=== PATIENT | male | born 1965 | race Caucasian/White ===

== ENCOUNTER 2020-05-03 21:27 | Emergency (ER) | payer BC ==
[2020-05-03] MEDS ORDERED: Lidocaine 2% Viscous Solution 15 ML Cup ONE (23:05)
[2020-05-03] MEDS ORDERED: Lidocaine 2% Viscous Solution 15 ML Cup PO ONE (23:26)
--- NOTE | 2020-05-03 23:41 | EDM.PDOC ---
ED [facility] GENERAL MEDICAL PROBLEM - General Chief Complaint: Genitourinary Problem Stated Complaint: URINARY PROBLEM Time Seen by Provider: 05/03/20 21:32 - History of Present Illness INITIAL COMMENTS - FREE TEXT/NARRATIVE: HISTORY AND PHYSICAL: History of present illness: 54-year-old male presents emergency department with acute urinary retention symptoms. Reports that he has severe pelvic discomfort and fullness and has had difficulty defecating, no leg or back issues, and recently was diagnosed with probable prostatitis and given Bactrim. Today he has not been able to urinate since noon. He is also had some constipation. No nausea or vomiting. Denies any fevers. Has mild dysuria. Review of systems: A 10-point review of systems, other than pertinent positives and negatives as stated per HPI, is otherwise negative. Past medical history: As per history of present illness and as reviewed below otherwise noncontributory. Surgical history: As per history of present illness and as reviewed below otherwise non contributory. Social history: No reported history of drug or alcohol abuse. Family history: As per history of present illness and as reviewed below otherwise noncontributory. Physical exam: VITAL SIGNS: Reviewed. GENERAL: Appears very uncomfortable and is diaphoretic and pale. Moderate distress. Holding abdomen. HEAD: No signs of head trauma. EYES: Pupils are equal. Extraocular motions intact. EARS: Hearing grossly intact. MOUTH: Oropharynx is normal. NECK: No adenopathy, no JVD. CHEST: Chest with clear breath sounds bilaterally. No wheezes, rales, or rhonchi. CARDIAC: Regular rate and rhythm. Normal S1 and S2, without murmurs, gallops, or rubs. VASCULAR: Peripheral pulses normal and equal in all extremities. ABDOMEN: Soft, tender and palpable bladder almost to the umbilicus, no rebound or guarding, no pulsatile mass noted MUSCULOSKELETAL: Good range of motion of all major joints. Extremities without clubbing, cyanosis or edema. NEUROLOGIC EXAM: Alert and oriented x 3. No focal sensory or motor deficits. Speech normal. Follows commands. PSYCHIATRIC: Mood normal. SKIN: No rash or lesions. Initial Differential Diagnosis & Plan: Urinary retention, aortic dissection, prostatitis, prostatic hypertrophy, urinary obstruction from stone or other causes. Definitive disposition and diagnosis as appropriate pending reevaluation and review of above. bladder Pain Score (Numeric/FACES): 10 - Related Data Allergies Allergy/AdvReac Type Severity Reaction Status Date / Time No Known Allergies Allergy Verified 05/03/20 23:32 Home Meds: Home Meds lisinopriL [Lisinopril] 5 mg PO DAILY 05/03/20 [History] Ciprofloxacin [Ciprofloxacin HCl] 500 mg PO BID 10 Days #20 tab 05/04/20 [Rx] Past Medical History - Past Health History Medical/Surgical History: Denies Medical/Surgical History Social & Family History - Tobacco Use Tobacco Use Status *Q: Never Tobacco User Second Hand Smoke Exposure: No - Recreational Drug Use Recreational Drug Use: No ED ROS GENERAL - Review of Systems Review Of Systems: See Below (noted) ED EXAM, RENAL/ - Physical Exam Exam: See Below (noted) Course - Vital Signs Last Recorded V/S: Last Vital Signs Temp 95.5 F L 05/03/20 23:01 Pulse 97 05/03/20 23:01 Resp 19 05/03/20 23:01 BP 178/87 H 05/03/20 23:01 Pulse Ox 97 05/03/20 23:01 - Orders/Labs/Meds Orders: Active Orders 24 hr Category Date Time Status Insert Maldonado Catheter [Insert Urinary Catheter] [OM.PC] Care 05/03/20 22:15 Ordered Q24H Urinary Catheter Assessment [RC] ASDIRECTED Care 05/03/20 22:04 Active BASIC METABOLIC PANEL,BMP [CHEM] Stat Lab 05/03/20 22:04 Ordered CBC WITH AUTO DIFF [HEME] Stat Lab 05/03/20 22:04 Ordered CULTURE BLOOD [BC] Stat Lab 05/03/20 23:43 Ordered CULTURE BLOOD [BC] Stat Lab 05/03/20 23:43 Ordered CULTURE URINE [RM] Stat Lab 05/03/20 22:40 Received LACTATE WITH REFLEX [BG] Stat Lab 05/03/20 23:43 Ordered Blood Culture x2 Reflex Set [OM.PC] Stat Oth 05/03/20 23:43 Ordered Labs: Laboratory Tests 05/03/20 Range/Units 22:40 Urine Color YELLOW Urine Appearance CLOUDY Urine pH 7.5 (5.0-8.0) Ur Specific [place] 1.020 (1.001-1.035) Urine Protein 30 H (NEGATIVE) mg/dL Urine Glucose (UA) NEGATIVE (NEGATIVE) mg/dL Urine Ketones NEGATIVE (NEGATIVE) mg/dL Urine Occult Blood SMALL H (NEGATIVE) Urine Nitrite POSITIVE H (NEGATIVE) Urine Bilirubin NEGATIVE (NEGATIVE) Urine Urobilinogen 0.2 (<2.0) EU/dL Ur Leukocyte Esterase MODERATE H (NEGATIVE) Urine RBC 2-4 (0-2/HPF) Urine WBC TO NUMEROUS TO COUNT H (0-5/HPF) Ur Epithelial Cells FEW (NONE-FEW) Urine Bacteria 4+ H (NEGATIVE) Urine Mucus LIGHT (NONE-MOD) Meds: Medications Discontinued Medications Generic Name Dose Route Start Last Admin Trade Name Jermaineq PRN Reason Stop Dose Admin Ceftriaxone Sodium/Dextrose 2 50 mls @ 100 mls/hr 05/03/20 23:42 gm/ Premix IV 05/04/20 00:11 ONETIME ONE Ketorolac Tromethamine 15 mg 05/03/20 23:42 Toradol IVPUSH 05/03/20 23:43 ONETIME ONE Lidocaine HCl Confirm 05/03/20 23:05 05/03/20 23:31 Xylocaine 2% Viscous Administered 05/03/20 23:06 Not Given Dose 15 ml .ROUTE .STK-MED ONE Lidocaine HCl 15 ml 05/03/20 23:26 05/03/20 23:31 Xylocaine 2% Viscous PO 05/03/20 23:27 15 ml ASDIRECTED ONE Administration - Re-Assessments/Exams Free Text/Narrative Re-Assessment/Exam: 05/04/20 00:52 Multiple attempts to relieve the urinary obstruction secondary to his UTI/cystitis. I was unable to pass it. Dr. Butler, urology, came to the bedside and evaluated the patient. While he was here the patient was able to urinate. We did not need to pass a catheter. Now he is urinated multiple times and he is feeling better. Dr. Butler will follow up with him in the office. He is asked me to prescribe ciprofloxacin and have the patient stop his Bactrim. My diagnostic impression: 1. Urinary tract infection/cystitis 2. Urinary retention; relieved Departure - Departure Time of Disposition: 00:53 Disposition: Home, Self-Care 01 Clinical Impression: Cystitis, Urinary retention - Discharge Information *PRESCRIPTION DRUG MONITORING PROGRAM REVIEWED*: Not Applicable *COPY OF PRESCRIPTION DRUG MONITORING REPORT IN PATIENT BECKA: Not Applicable Prescriptions: Ciprofloxacin [Ciprofloxacin HCl] 500 mg PO BID 10 Days #20 tab Instructions: Urinary Tract Infection, Adult, [id number] Referrals: PCP,None [Primary Care Provider] - Forms: ED Department Discharge Additional Instructions: The following information is given to patients seen in the emergency department who are being discharged to home. This information is to outline your options for follow-up care. We provide all patients seen in our emergency department with a follow-up referral. The need for follow-up, as well as the timing and circumstances, are variable depending upon the specifics of your emergency department visit. If you don't have a primary care physician on staff, we will provide you with a referral. We always advise you to contact your personal physician following an emergency department visit to inform them of the circumstance of the visit and for follow-up with them and/or the need for any referrals to a consulting specialist. The emergency department will also refer you to a specialist when appropriate. This referral assures that you have the opportunity for follow-up care with a specialist. All of these measure are taken in an effort to provide you with optimal care, which includes your follow-up. Thank you for coming to the [facility] urgency department for your care today. It was Dr. Pickett's pleasure to take care of you. [facility] - Urology [address] [place] [id number] Please follow-up with your urologist. Dr. Butler would love to see you in his clinic. Please return the emergency department if you cannot urinate. If you have fever, vomiting or any other concerns please return immediately for these. We are always happy to see you. Under all circumstances we always encourage you to contact your private physician who remains a resource for coordinating your care. When calling for follow-up care, please make the office aware that this follow-up is from your recent emergency room visit. If for any reason you are refused follow-up, please contact the [facility] Emergency Department at and asked to speak to the emergency department charge nurse. Sepsis Event Note (ED) - Evaluation Sepsis Screening Result: No Definite Risk - Focused Exam Vital Signs: Vital Signs Temp Pulse Resp BP Pulse Ox 05/03/20 23:01 95.5 F L 97 19 178/87 H 97 - My Orders Last 24 Hours: My Active Orders 05/03/20 22:04 Urinary Catheter Assessment [RC] ASDIRECTED BASIC METABOLIC PANEL,BMP [CHEM] Stat CBC WITH AUTO DIFF [HEME] Stat 05/03/20 22:15 Insert Maldonado Catheter [Insert Urinary Catheter] [OM.PC] Q24H 05/03/20 22:40 CULTURE URINE [RM] Stat 05/03/20 23:43 CULTURE BLOOD [BC] Stat CULTURE BLOOD [BC] Stat LACTATE WITH REFLEX [BG] Stat Blood Culture x2 Reflex Set [OM.PC] Stat - Assessment/Plan Last 24 Hours: My Active Orders 05/03/20 22:04 Urinary Catheter Assessment [RC] ASDIRECTED BASIC METABOLIC PANEL,BMP [CHEM] Stat CBC WITH AUTO DIFF [HEME] Stat 05/03/20 22:15 Insert Maldonado Catheter [Insert Urinary Catheter] [OM.PC] Q24H 05/03/20 22:40 CULTURE URINE [RM] Stat 05/03/20 23:43 CULTURE BLOOD [BC] Stat CULTURE BLOOD [BC] Stat LACTATE WITH REFLEX [BG] Stat Blood Culture x2 Reflex Set [OM.PC] Stat
[2020-05-03] MEDS ORDERED: cefTRIAXone 2 GM in Premix Bag 1 BAG IV ONE (23:42)
[2020-05-03] MEDS ORDERED: Ketorolac 15 MG/ML SDV IVPUSH ONE (23:42)
--- NOTE | 2020-05-04 00:36 | CT ---
INDICATION: Urinary retention and constipation with abdominal pain TECHNIQUE: CT Abdomen and pelvis without i.v. contrast. Coronal and sagittal reformats were obtained. COMPARISON: None FINDINGS: Lower chest: There are 2 calcified granulomas present in anterior lower lobe measuring 6 mm and 18 mm. Liver: Unremarkable. Spleen: Unremarkable. Pancreas: Unremarkable. Gallbladder: Several punctate calcified gallstones are present within the gallbladder neck. Kidney: Mild bilateral hydroureter and renal pelviectasis is noted. Adrenal: Unremarkable. Bowel: Unremarkable. The appendix is normal in appearance and size. Vascular: Unremarkable. Lymph: Unremarkable. Peritoneum: Unremarkable. No pneumoperitoneum is seen. No significant ascites is noted. Pelvis: There is a right bladder diverticulum measuring 5.4 x 3.3 cm which contains punctate calcific layering debris. A 2nd bladder diverticulum is seen along the left anterior bladder measuring 5.3 x 3.8 cm. Multiple tiny calcified bladder stones are present. Moderate wall thickening and bladder base noted with infiltration in the adjacent fat. Soft tissue: Unremarkable. Bone: Moderate levoscoliosis is noted with associated facet arthritis and degenerative disc disease. IMPRESSIONS: 1. There is a right bladder diverticulum measuring 5.4 x 3.3 cm which contains punctate calcific layering debris. A 2nd bladder diverticulum is seen along the left anterior bladder measuring 5.3 x 3.8 cm. 2. Multiple tiny calcified bladder stones are present. 3. Moderate wall thickening and bladder base noted with infiltration in the adjacent fat. Correlation with urinalysis is recommended to exclude cystitis or urinary tract infection 4. Mild bilateral hydroureter and renal pelviectasis is noted. This may be due to this could ureteral reflux or previous obstruction. Dictated by Guicho Schwartz MD @ 05/04/2020 12:35:03 AM Please note that all CT scans at this facility use dose modulation, iterative reconstruction, and/or weight-based dosing when appropriate to reduce radiation dose to as low as reasonably achievable. Dictated by: Guicho Schwartz MD @ 05/04/2020 00:35:14 (Electronically Signed)
[2020-05-04] MEDS ORDERED: Ciprofloxacin 500 MG Tab PO ONE (00:59)
[2020-05-04] MEDS ORDERED: Ciprofloxacin 500 MG Tab ONE (01:00)
== END 2020-05-04 01:17 | disposition home or self-care (01) ==
LOC: MW.ED 21:27
DX: N30.90 Cystitis, unspecified without hematuria (principal); R33.9 Retention of urine, unspecified
CPT/HCPCS: 74176; 81001; 87086; 99284; A9270